=== PATIENT | male | born 1945 | race Caucasian/White ===

== ENCOUNTER 2017-06-15 13:51 | Emergency (ER) | payer OTHER, BC ==
[~2017-06-15] VITALS: Ht 167.6 cm; Wt 90.7 kg
[~2017-06-15 13:51] MED LIST: ACETAMINOPHEN325 MG PO; AUGMENTIN 875875 MG PO; BENICAR40 MG PO; CELEXA20 MG PO; DICLOFENAC SODI75 MG PO; HYDROCODONE-AP1 EAC6 PO; KEFLEX500 MG PO; LOPRESSOR50 PO; XANAX 0.5 MG0.5 MG PO; ZESTRIL40 MG PO
[2017-06-15] MEDS ORDERED: FLEXERIL PO (14:58)
== END 2017-06-15 15:13 | disposition home or self-care (01) ==
LOC: ER 13:51
DX: M54.2 Cervicalgia (principal); I10 Essential (primary) hypertension; J44.9 Chronic obstructive pulmonary disease, unspecified; Z87.442 Personal history of urinary calculi; Z88.7 Allergy status to serum and vaccine; V89.2XXA Person injured in unspecified motor-vehicle accident, traffic, initial encounter; Y93.89 Activity, other specified; Y92.89 Other specified places as the place of occurrence of the external cause; Y99.8 Other external cause status

== ENCOUNTER 2017-07-04 15:13 | Inpatient (IN) | payer OTHER, BC ==
[~2017-07-04] VITALS: Ht 167.6 cm; Wt 91.6 kg
--- NOTE | ~2017-07-04 | EKG ---
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: [facility] : 1945 Requested By: Jose Luis Quan Order Number: [id number] MD: Salvador Garcia Measurements Intervals [place] Rate: 65 P: 68 [place]: 151 QRS: -14 QRSD: 108 T: -42 QT: 443 QTc: 461 Interpretive Statements Sinus rhythm Left atrial enlargement Abnormal R-wave progression, late transition Abnormal T, inferior leads Compared to ECG 01/22/2003 12:27:40 T-wave abnormality now present Electronically Signed On 07-05-2017 8:34:20 CDT by Salvador Garcia [email or web address] <ELECTRONICALLY SIGNED> By: Salvador Garcia MD, [facility] 07/05/17 0834 1546 1546 Salvador Garcia MD, [facility] /EPI
--- NOTE | ~2017-07-04 | HC ---
[facility] [place] [address] CONSULTATION Name: EFFIE SILVESTRE ANTIOCH Room #: 216-[facility] IN M.R.#: [id number] Admission: 07/04/17 Attend Phys: Ollie Garcia MD Discharge: 07/07/17 Date of : 49 Report #: [id number] THIS REPORT FOR: //name// CC: Ollie Pemberton REASON FOR CONSULTATION: Elevated troponin. HISTORY OF PRESENT ILLNESS: The patient is a 71-year-old gentleman with history of severe COPD with a greater than [id number] smoking history, hypertension and dyslipidemia. In the past, he has had an elevated coronary calcium score and normal ejection fraction with a nonischemic stress study in either 2014 or 2015. I saw him in the office on June 21 with exertional breathlessness following an episode of either bronchitis or pneumonia in February of 2017. He was placed on steroids and antibiotics at that time, although his symptoms persisted, never really completely resolved. In the office, as has been at home, his oxygen saturations were consistently in the low 80s. Home oxygen therapy was arranged and an outpatient echocardiogram was performed, which demonstrated normal left ventricular systolic function, severe right ventricular dysfunction and severe pulmonary hypertension. He was seen in consultation by Dr. Sam Britt. Pulmonary function studies demonstrated very severe COPD. The patient now presents with cough productive of bloody sputum. He has had fevers and chills. He has not taken his temperature. He was seen in the Emergency Department. Given his history of hemoptysis, chest x-ray was fairly unremarkable. CT scan demonstrated right lower lobe pneumonia. In the Emergency Department, his evaluation also included a proBNP that was elevated at 6710 and a troponin at 1.78. His troponin levels have been low-grade, persistently elevated. EKG demonstrated no acute ST or T-wave changes. When he was seen in the office a couple of weeks ago, he had significant lower extremity edema and volume overload. This has resolved with a change in diuretic therapy from low dose furosemide to torsemide. MEDICATIONS: Include citalopram 20 mg daily, clonidine 0.3 mg half tablet in the morning, torsemide 20 mg daily, potassium 20 mEq daily, hydrocodone as needed, lisinopril 40 mg twice daily, Toprol-XL 100 mg daily. PAST MEDICAL HISTORY: Notable for herniorrhaphy, knee surgery, tooth extraction, dyslipidemia, central lobular emphysema, staghorn renal calculus, DJD, coronary artery nonocclusive atherosclerosis. SOCIAL HISTORY: He is an ongoing smoker, . FAMILY HISTORY: Unremarkable for premature coronary disease. [address] [address] CONSULTATION Name: DENTON SILVESTRET ANTIOCH Room #: 216-[facility] IN M.R.#: [id number] Admission: 07/04/17 Attend Phys: Ollie Garcia MD Discharge: 07/07/17 Date of : 49 Report #: [id number] REVIEW OF SYSTEMS: All systems negative except as that noted above. PHYSICAL EXAMINATION: GENERAL: A pleasant gentleman in no distress. VITAL SIGNS: Blood pressure is 170/100, temperature is 99.2 degrees, 5 feet 6 inches tall, 202 pounds. HEENT: There are neither xanthelasma, subcutaneous xanthomata, oral mucosal or digital cyanosis or kyphoscoliosis present. CHEST: Reveals diminished breath sounds at both bases. CARDIAC: Regular rate and rhythm with normal S1 and increased pulmonic closure sound. ABDOMEN: Soft and nontender. EXTREMITIES: Without cyanosis, clubbing or edema. Radial pulses are 2+. NEUROLOGIC: Alert with a nonfocal exam. LABORATORY DATA: Sodium 139, potassium 4.4, creatinine 1.1. ProBNP of 6710. White count 3.8, hemoglobin 13, hematocrit 42, platelet count 157. EKG, sinus rhythm with early R-wave progression. IMPRESSION: 1. Right lower lobe pneumonia. 2. Chronic obstructive pulmonary disease exacerbation with hemoptysis. 3. Very severe chronic obstructive pulmonary disease with right ventricular failure and severe pulmonary hypertension. 4. Non-Q-wave myocardial infarction consistent with a type 2 myocardial infarction related to supply demand mismatch in the setting of hypoxemia, fever, hypertension and chronic obstructive pulmonary disease exacerbation. 5. Hypertension. 6. Chronic diastolic heart failure with stable volume status, actually improved from recently. RECOMMENDATIONS: 1. Resume medications. 2. Primary efforts directed towards treatment of underlying lung disease and pneumonia. 3. Smoking cessation discussed. Thank you for asking me to participate in the patient's care. <ELECTRONICALLY SIGNED> By: Salvador Garcia MD, [facility] 07/10/17 0911 0747 58 Salvador Garcia MD, FAC /nt
--- NOTE | ~2017-07-04 | HC ---
[facility] [place] [address] CONSULTATION Name: EFFIE SILVESTRE LACONIA Room #: 216-P [facility] IN M.R.#: [id number] Admission: 07/04/17 Attend Phys: Ollie Garcia MD Discharge: 07/07/17 Date of : 49 Report #: [id number] THIS REPORT FOR: //name// CC: Ollie Pemberton DATE OF SERVICE: 07/04/2017 PRIMARY CARE PHYSICIAN: Dr. Gustavo Pemberton. REFERRAL PHYSICIAN: Dr. Garcia. REASON FOR REFERRAL: Hemoptysis. HISTORY OF PRESENT ILLNESS: The patient is a 71-year-old white male who presents to Emergency Room with hemoptysis. A pulmonary consultation was requested. The patient was recently seen by Dr. Britt in the Pulmonary office for COPD. He was also seen by Cardiology recently. An echocardiogram performed showed evidence of right-sided heart failure with pulmonary hypertension, severe right ventricular dysfunction. I do not have a copy of pulmonary function test. About a week and a half ago, he noticed he had mild chills, sore throat. He had a cough mildly productive of purulent sputum. About 2 days ago, he started to develop increasing cough, now productive of what appears to be minimal amounts of bright red blood mixed in with sputum. For that reason, he presents to the Emergency Room. Otherwise, he denies any chest pain, nausea, vomiting, diarrhea. The patient has smoked for the last 50 plus years. He smokes about a pack a day. He is known to have COPD in the past. PAST MEDICAL HISTORY: COPD, severity unknown; tobacco abuse; history of nephrolithiasis; hypertension; recent echocardiogram showing pulmonary hypertension, RV dysfunction. I do not have the echocardiogram for review. PAST SURGICAL HISTORY: Status post right knee surgery. ALLERGIES: None to medication. He is allergic to TETANUS TOXOID, reactions unspecified. MEDICATIONS: Home medications include hydrocodone, Voltaren, Lopressor, Xanax, Celexa, Benicar, Zestril, clonidine, K-Dur, Demadex. FAMILY HISTORY: Father at the age of 31 due to accident. Mother due [facility] [address] [place] [address] CONSULTATION Name: EFFIE SILVESTRE LACONIA Room #: 216-P [facility] IN [facility].#: [id number] Admission: 07/04/17 Attend Phys: Ollie Garcia MD Discharge: 07/07/17 Date of : 49 Report #: [id number] to throat cancer, she had smoked. SOCIAL HISTORY: He is , smokes about 2 packs a day. He denies any alcohol use. REVIEW OF SYSTEMS: As mentioned above. Otherwise, 10-point system review negative. PHYSICAL EXAMINATION: GENERAL: He is alert, awake, appears to be in mild distress. VITAL SIGNS: Temperature is 99.2 degrees Fahrenheit, pulse is 80, respiratory rate is 20, blood pressure 185/100 mmHg, saturation 91%. HEENT: Normocephalic, atraumatic. NECK: Supple, without lymphadenopathy or thyromegaly. CHEST: Breath sounds are good with few scattered crackles in the bases. No wheezes. CARDIOVASCULAR: Normal S1, S2. No murmurs or gallop. There is no JVD. There is no carotid bruit. Pulses are 2+/4+ bilaterally. ABDOMEN: Moderately obese, soft, nontender. EXTREMITIES: No cyanosis or clubbing, but trace edema bilaterally, less than 1+. NEUROLOGIC: Grossly intact. LABORATORY DATA: Chest x-ray showed cardiomegaly. CT chest angiogram showed no evidence of pulmonary embolus, mild patchy infiltrates in the right lower lung field. There appears to be a small consolidation density also within the infiltrates. Electrolytes normal, creatinine is 1.1. WBC is 6200, hemoglobin is 14.0, platelets are normal. Troponin 3.8. Arterial blood gas revealed pH of 7.36, pCO2 of 57, pO2 of 65 on 2 liters of O2. IMPRESSION: 1. Hemoptysis in this 71-year-old white male, probably related to underlying exacerbation of chronic obstructive pulmonary disease along with pneumonia, right lower lobe. 2. Chronic obstructive pulmonary disease, seborrhea, severity unknown, now with mild exacerbation. 3. Probable chronic hypercapnic respiratory failure. 4. Right lower lobe infiltrates. My review of the CT chest angiogram suggested possible density involving the right lower lobe pleural base. A followup CT chest may be helpful to rule out other pathologies. 5. Elevated troponin, probably related to increasing myocardial stress demand, Cardiology has been consulted. 6. Pulmonary hypertension, right ventricular dysfunction, due to his pulmonary impairment. The patient appeared to have right-sided heart failure due to cor [address] [place] [address] CONSULTATION Name: EFFIE SILVESTRE LACONIA Room #: 216-P [facility] IN M.R.#: [id number] Admission: 07/04/17 Attend Phys: Ollie Garcia MD Discharge: 07/07/17 Date of : 49 Report #: [id number] pulmonale, much improved after he has been placed on diuretics as an outpatient. 7. Tobacco abuse. We had a long discussion regarding importance of smoke cessation. RECOMMENDATION AND DISCUSSION: I agree with broad-spectrum antibiotics, corticosteroids and bronchodilators. The patient should be treated for community-acquired pneumonia. Followup CT chest in 6-8 weeks after treatment is recommended to assure that infiltrates, densities clear. Agree with gentle diuresis given right-sided heart failure due to cor pulmonale. DVT and GI prophylaxis recommended. Again strongly recommended smoke cessation. The patient voices understanding. Thank you for the consultation, Dr. Britt will follow during this hospital stay. <ELECTRONICALLY SIGNED> By: Peter Dumont MD 07/08/17 1232 1203 2211 Peter Dumont MD /nt
[~2017-07-04 15:13] MED LIST changes: +FLEXERIL PO
[2017-07-04 15:19] VITALS: BP 147/99
[2017-07-04 16:21] LABS: ABSOLUTE NEUTROPHILS 4.5 thou/uL (1.4-8.2); BASOPHILS 0.4 % (0.0-2.0); EOSINOPHILS 1.1 % (0.0-3.0); HEMATOCRIT 41.6 % (42.0-52.0); LYMPHOCYTES 13.8 % (24.0-44.0); MCH 31.6 pg (26.0-34.0); MCHC 33.6 g/dL (28.0-37.0); MCV 94.1 fL (80.0-100.0); MONOCYTES 11.9 % (1.0-8.0); PLATELET COUNT 148 thou/uL (150-400); POLYS 72.8 % (36.0-66.0); RBC 4.42 mil/uL (4.50-6.00); RDW 15.9 % (10.5-14.5); WBC 6.2 thou/uL (4.0-11.0)
[2017-07-04 16:29] LABS: CALCIUM 8.7 mg/dL (8.5-10.1); CREATININE 1.2 mg/dL (0.7-1.3); POTASSIUM 3.9 mmol/L (3.5-5.1)
[2017-07-04 16:31] LABS: HCO3 32.1 mmol/L (22.0-26.0); PCO2 57.8 mmHg (35.0-45.0); PO2 65.2 mmHg (80.0-100.0); pH 7.362 (7.360-7.450); sO2 91.7 % (92.0-98.0)
[2017-07-04 16:38] LABS: TROPONIN-I 1.36 ng/mL (<0.06)
[2017-07-04] MEDS ORDERED: CLONIDINE HCL0.3 M3 PO (18:18)
[2017-07-04] MEDS ORDERED: DEMADEX20 MG PO (18:20)
[2017-07-04] MEDS ORDERED: POTASSIUM20 PO (18:20)
[2017-07-04 18:22] VITALS: BP 185/101
[2017-07-04 19:30] VITALS: BP 180/105
[2017-07-05] VITALS (7 sets, daily range): BP systolic 157–195; BP diastolic 89–101
[2017-07-05 04:58] LABS: HEMOGLOBIN 13.9 gm/dL (14.0-18.0); MCH 31.5 pg (26.0-34.0); MCHC 33.1 g/dL (28.0-37.0); MCV 95.3 fL (80.0-100.0); RBC 4.41 mil/uL (4.50-6.00); WBC 3.8 thou/uL (4.0-11.0)
[2017-07-05 05:06] LABS: CALCIUM 8.6 mg/dL (8.5-10.1); CREATININE 1.1 mg/dL (0.7-1.3); MAGNESIUM 1.7 mg/dL (1.8-2.4); POTASSIUM 4.4 mmol/L (3.5-5.1)
[2017-07-05 05:11] LABS: CHOLESTEROL 113 mg/dL (<200); HDL CHOLESTEROL 46 mg/dL (>40); LDL CHOLESTEROL 59 mg/dL (<100); TC:HDL 2.5 Ratio (Not establshd); TRIGLYCERIDE 44 mg/dL (<150); VLDL 9 mg/dL (<40)
[2017-07-05 05:12] LABS: SERUM ASSESSMENT Clear
[2017-07-06 04:36] VITALS: BP 163/103
[2017-07-06 09:19] VITALS: BP 146/67
[2017-07-06] MEDS ORDERED: MUCINEX600 MG PO (09:53)
[2017-07-06] MEDS ORDERED: LEVAQUIN 500 M500 M3 PO (09:55)
[2017-07-06] MEDS ORDERED: PREDNISONE 10 M10 MG PO (09:56)
[2017-07-06 12:38] VITALS: BP 156/85
[2017-07-06 17:07] VITALS: BP 147/78
[2017-07-06 19:45] VITALS: BP 154/83
[2017-07-07 04:25] VITALS: BP 162/100
[2017-07-07 07:07] VITALS: BP 165/109
[2017-07-07 11:44] VITALS: BP 145/92
[2017-07-07] MEDS ORDERED: DUONEB 2.5-0.5 M3 ML INH (11:50)
[2017-07-07 13:06] VITALS: BP 145/92
== END 2017-07-07 14:03 | disposition home or self-care (01) | DRG 193 ==
LOC: ER 15:13 → 2N 18:06 → EROBS 18:06 → 2N 19:36
PROVIDERS: Internal Medicine; Internal Medicine Pulmonary Disease; Physician Assistant
DX: J18.1 Lobar pneumonia, unspecified organism (principal); J96.21 Acute and chronic respiratory failure with hypoxia; I21.A1 Myocardial infarction type 2; J96.22 Acute and chronic respiratory failure with hypercapnia; J44.1 Chronic obstructive pulmonary disease with (acute) exacerbation; R04.2 Hemoptysis; I50.32 Chronic diastolic (congestive) heart failure; J44.0 Chronic obstructive pulmonary disease with (acute) lower respiratory infection; F17.210 Nicotine dependence, cigarettes, uncomplicated; E78.5 Hyperlipidemia, unspecified; K08.409 Partial loss of teeth, unspecified cause, unspecified class; I11.0 Hypertensive heart disease with heart failure; M19.90 Unspecified osteoarthritis, unspecified site; I25.10 Atherosclerotic heart disease of native coronary artery without angina pectoris; I27.20 Pulmonary hypertension, unspecified; F41.9 Anxiety disorder, unspecified; I27.81 Cor pulmonale (chronic); Z79.82 Long term (current) use of aspirin; Z90.6 Acquired absence of other parts of urinary tract; Z87.442 Personal history of urinary calculi; Z88.8 Allergy status to other drugs, medicaments and biological substances; Z82.49 Family history of ischemic heart disease and other diseases of the circulatory system; Z79.899 Other long term (current) drug therapy
CPT/HCPCS: 10081

== ENCOUNTER 2017-07-13 10:44 | Inpatient (IN) | payer OTHER, BC ==
[~2017-07-13] VITALS: Ht 167.6 cm; Wt 97.1 kg
--- NOTE | ~2017-07-13 | EKG ---
[address] [address] ELECTROCARDIOGRAM REPORT Name: VESNA SILVESTREALIREZA MOREL Room #: 207-P ADM IN M.R.#: [id number] Admission: 07/13/17 Attend Phys: Talia Ngo MD Discharge: Date of : 49 Report #: [id number] THIS REPORT FOR: //name// [facility] Test Date: 2017-07-15 Test Time: 18:15:50 Pat Name: EFFIE SILVESTRE Department: Room: 207 P Gender: M Compliance Reviewer: [facility] : 1945 Requested By: Modesto Patterson Order Number: [id number] MD: Hammad Sanchez Measurements Intervals [place] Rate: 92 P: 40 [place]: 114 QRS: 14 QRSD: 105 T: -22 QT: 357 QTc: 442 Interpretive Statements Sinus rhythm Borderline short [place] interval Borderline ST depression, anterolateral leads Abnormal T, consider ischemia, inferior leads Compared to ECG 07/04/2017 15:46:15 Similar to prior EKG Electronically Signed On 07-15-2017 22:58:58 CDT by Hammad Sanchez [email or web address] <ELECTRONICALLY SIGNED> By: Hammad Sanchez MD 07/15/17 2258 1815 1815 Hammad Sanchez MD /EPI
--- NOTE | ~2017-07-13 | H ---
[facility] [place] [address] HISTORY AND PHYSICAL Name: EFFIE SILVESTRE [place] Room #: 207-P ADM IN M.R.#: [id number] Admission: 07/13/17 Attend Phys: Talia Ngo MD Discharge: Date of : 49 Report #: [id number] THIS REPORT FOR: //name// CC: Gustavo Ngo DATE OF SERVICE: 07/13/2017 CHIEF COMPLAINT: Nausea, abdominal cramps. HISTORY OF PRESENT ILLNESS: The patient is a 71-year-old male who recently was at [facility] with pneumonia, hypoxia. The patient was discharged home last week. He stated that he had really good weight. Yesterday, he saw his pulmonary doctor, Dr. Britt. He was doing well. Then, he went with his to eat. He ate and then, he developed abdominal cramps. He stated that he had a large bowel movement yesterday, which was painful. It was hard, but then, by the end, it was loose. The patient had another small bowel movement today. He continues to have abdominal cramps and came to the Emergency Department. PAST MEDICAL HISTORY: History of recent hospitalization with hemoptysis and pneumonia, right-sided heart failure, cor pulmonale. He had kidney surgery, kidney stone, hypertension, COPD, emphysema. He also had elevated troponins last time, which was felt due to oxygen demand due to pneumonia and hypoxia. MEDICATIONS: Reviewed and reconciled. Please see MAR. ALLERGIES: TETANUS. SOCIAL HISTORY: Positive for smoking. No illicit drug use, no alcohol use. FAMILY HISTORY: Noncontributory. REVIEW OF SYSTEMS: No headache, no dizziness, no chest pain, no shortness of breath, no cough. He stated cough resolved. He has abdominal cramps. Feeling bad that he actually ate dinner today. His blood pressure was low on admission, but then it stabilized. He denies any dizziness. Regarding bowel movement, please see discussion above. A little bit nauseated. Did have vomiting yesterday, but none today. He denies any pain in the legs. No neurological deficit. PHYSICAL EXAMINATION: GENERAL: The patient is awake, alert. He is not in distress, answers questions appropriately. VITAL SIGNS: His temperature is 36.6, pulse 85, respirations 16, blood pressure was 80/40 in the ER, currently 116/65. [address] [address] HISTORY AND PHYSICAL Name: EFFIE SILVESTRE [place] Room #: 207-P [facility] IN .R.#: [id number] Admission: 07/13/17 Attend Phys: Talia Ngo MD Discharge: Date of : 49 Report #: [id number] HEENT: Head normocephalic. Oral mucosa pink, moist. NECK: Supple. LUNGS: Showed clear breath sounds. No wheezes, crackles or rhonchi. HEART: S1, S2 normal. Rhythm is regular. ABDOMEN: Obese, diffuse tenderness on palpation. No localized tenderness, no rebound, no guarding. Bowel sounds normoactive. EXTREMITIES: Showed no edema, no calf tenderness. NEUROLOGIC: Nonfocal. IMAGING: CT of the abdomen showed no CT findings to explain abdominal pain. Normal appendix. Extensive atherosclerotic disease of the abdominal aorta without evidence of aortic dissection or aneurysm. Mild ascites. No CT evidence of bowel ischemia, ventral hernia present. Colonic diverticulosis without diverticulitis. Interval decrease in the right lower lobe pulmonary opacity. LABORATORY DATA: White blood cell count 26.4, hemoglobin 15.0, platelets 205,000. Sodium 136, potassium 4.0, BUN is 31, creatinine 1.1. On last admission creatinine, was 1. Lactic acid 1.9, lipase 88. ASSESSMENT AND PLAN: 1. Abdominal pain, nausea, vomiting. Possibly, the patient had food poisoning. Gastroenteritis. The patient does have leukocytosis. I will put the patient on Flagyl and IV fluids. No evidence of pneumonia per exam. He completed treatment with antibiotic. We will keep off systemic antibiotic except Flagyl for abdominal process. 2. Acute kidney injury due to dehydration. We will hold torsemide. Give gentle IV fluids. 3. Leukocytosis. Please see discussion above. 4. Low blood pressure. We will hold blood pressure medication and reassess blood pressure. 5. We will check chest x-ray tomorrow to make sure the pneumonia has cleared up. <ELECTRONICALLY SIGNED> By: Talia Ngo MD 07/15/17 0019 1845 1906 Talia Ngo MD /nt
--- NOTE | ~2017-07-13 | HC ---
[facility] [place] [address] CONSULTATION Name: EFFIE SILVESTRE [place] Room #: 207-P ADM IN M.R.#: [id number] Admission: 07/13/17 Attend Phys: Talia Ngo MD Discharge: Date of : 49 Report #: [id number] THIS REPORT FOR: //name// CC: Gustavo Ngo DATE OF SERVICE: 07/14/2017 REFERRING PROVIDER: Talia Ngo MD. REASON FOR CONSULT: Abdominal pain. HISTORY OF PRESENT ILLNESS: The patient is a 71-year-old male who presented to the Emergency Room yesterday with a 24-hour history of abdominal pain, nausea, vomiting and diarrhea. The patient was recently hospitalized for hemoptysis and only has a prior abdominal surgical history of a hernia repair. While in the Emergency Room, he underwent a workup with laboratories and a CT angiogram of the abdomen and pelvis. The patient had a marked leukocytosis with a white blood cell count of 26,000; however, his CT scan showed no evidence of intra-abdominal abnormality. The patient was admitted for ongoing evaluation whereby today, his white blood cell count is minimally improved, down to 24,900; however, chest x-ray today showed free air under the diaphragm. A followup repeat CT scan of the chest, abdomen and pelvis was obtained showing the free air in the abdomen that is moderate in volume as well as inflammation around the sigmoid colon consistent with sigmoid diverticulitis with a microperforation releasing free air into the abdomen. The patient has no large amount of free fluid and has no abscess seen. He does have a recurrent hernia about his hernia mesh placed prior. As such, I am asked to evaluate. PAST MEDICAL HISTORY: Prior hernia repair, hypertension, COPD, emphysema, known kidney stones and a prior pilonidal cystectomy. HOME MEDICATIONS: [place], Voltaren, metoprolol, acetaminophen, Xanax, Celexa, Benicar, lisinopril, clonidine, potassium, and torsemide. He is also on DuoNeb, Mucinex, Levaquin and prednisone during this admission. ALLERGIES: TO TETANUS TOXOID. FAMILY HISTORY: Reviewed and noncontributory. SOCIAL HISTORY: The patient did have a significant tobacco use history, although he states he quit smoking prior to his recent admission. Denies alcohol or illicit drug use. REVIEW OF SYSTEMS: GENERAL: The patient denies nocturnal fevers or chills. [address] [address] CONSULTATION Name: EFFIE SILVESTRE [place] Room #: 207-P [facility] IN M.R.#: [id number] Admission: 07/13/17 Attend Phys: Talia Ngo MD Discharge: Date of : 49 Report #: [id number] HEENT: No change in vision, change in hearing. NECK: No swelling or difficulty swallowing. HEART: No chest pain, palpitations. LUNGS: No cough or shortness of breath. ABDOMEN: Abdominal pain, nausea, vomiting and diarrhea. GENITOURINARY: No dysuria or hematuria. ENDOCRINE: No polyuria or polydipsia. HEMATOLOGIC: No history of bleeding or easy bruising. EXTREMITIES: No history weakness or limited range of motion. NEUROLOGIC: No history of syncope or near syncopal episodes. SKIN AND INTEGUMENT: No history of abnormal lesions or moles. PSYCHIATRIC: Positive history of anxiety and depression. PHYSICAL EXAMINATION: VITAL SIGNS: Temperature 99.2, pulse 80, respirations 18, blood pressure 113/53. He is 5 feet 6 inches tall and weighs 203 pounds. GENERAL: He is alert and oriented, in no acute distress. HEENT: Normocephalic, atraumatic. Pupils equal, round, reactive to light. NECK: Supple, without lymphadenopathy. Trachea midline. HEART: Regular rate and rhythm. LUNGS: Clear to auscultation bilaterally. ABDOMEN: Soft, minimally distended. Minimal diffuse tenderness to deep palpation, but no guarding, no rebound, no peritoneal signs or symptoms. GENITOURINARY: Normal external male genitalia. EXTREMITIES: No clubbing, cyanosis or edema. NEUROLOGIC: Cranial nerves 2-12 are grossly intact. PSYCHIATRIC: Normal mood and affect. SKIN AND INTEGUMENT: No abnormal lesions or moles. LABORATORY AND X-RAY DATA: CBC shows white blood cell count of 24,900, hemoglobin 14.8, platelets 200,000. Creatinine is 1.3. Liver function enzymes are normal. Albumin is extremely low at 2.5. CT scan of the abdomen and pelvis as per HPI shows sigmoid colon inflammation with free air, but no free fluid, all consistent with a sigmoid diverticulitis with microperforation releasing free air into the abdomen. ASSESSMENT AND PLAN: A 71-year-old male who has been placed on steroids for pulmonary disease and is now readmitted with what appears to be sigmoid diverticulitis with microperforation. The patient does not have any evidence of gross peritonitis and is not septic as he is normotensive with a normal heart rate and is afebrile at this time. He does carry a marked leukocytosis, part of which could be ascribed to his recent steroid use. Nonetheless, the patient should be kept n.p.o. with IV fluid rehydration and we will initiate IV antibiotics in the form of Zosyn and Flagyl, which will cover him for all aerobes and anaerobic bacteria. I will perform serial abdominal exams and repeat x-rays daily. Hopefully, he improves with conservative [facility] [address] [place] [address] CONSULTATION Name: NIRMALAEFFIE RAY Room #: 207-P ADM IN M.R.#: [id number] Admission: 07/13/17 Attend Phys: Talia Ngo MD Discharge: Date of : 49 Report #: [id number] management as expected, so as to avoid operative intervention this admission, especially with his recent hemoptysis and pulmonary issues. I did spend greater than 60 minutes in full evaluation of this patient, both discussing with the patient as well as with Dr. Ngo the plan as delineated above. I sincerely appreciate this consult. I will follow closely and leave any further recommendations in the patient's chart as appropriate. <ELECTRONICALLY SIGNED> By: Jacki Lyle MD, FACS 07/15/17 1028 1525 1834 Jacki Lyle MD, FACS /nt
[~2017-07-13 10:44] MED LIST changes: +CLONIDINE HCL0.3 M3 PO; +DEMADEX20 MG PO; +DUONEB 2.5-0.5 M3 ML INH; +LEVAQUIN 500 M500 M3 PO; +MUCINEX600 MG PO; +POTASSIUM20 PO; +PREDNISONE 10 M10 MG PO
[2017-07-13 11:20] VITALS: BP 87/48
[2017-07-13 11:52] LABS: HEMATOCRIT 44.4 % (42.0-52.0); MCH 31.2 pg (26.0-34.0); MCHC 33.8 g/dL (28.0-37.0); MCV 92.4 fL (80.0-100.0); PLATELET COUNT 205 thou/uL (150-400); RBC 4.81 mil/uL (4.50-6.00); RDW 15.8 % (10.5-14.5); WBC 26.4 thou/uL (4.0-11.0)
[2017-07-13 12:00] LABS: CALCIUM 8.4 mg/dL (8.5-10.1); CREATININE 1.6 mg/dL (0.7-1.3)
[2017-07-13 12:06] LABS: ALBUMIN 2.7 g/dL (3.4-5.0); TOTAL BILIRUBIN 0.9 mg/dL (<0.1-1.0); TOTAL PROTEIN 6.5 g/dL (6.4-8.2)
[2017-07-13 12:53] LABS: ABSOLUTE NEUTROPHILS 24.6 thou/uL (1.4-8.2); METAMYELOCYTES 1 %
[2017-07-13 12:54] LABS: ANISOCYTOSIS 1+
[2017-07-13 13:28] LABS: URINE BILIRUBIN NEGATIVE (Negative); URINE BLOOD 1+ (Negative); URINE COLOR YELLOW; URINE GLUCOSE-RANDOM* NEGATIVE (Negative); URINE KETONES NEGATIVE (Negative); URINE LEUKOCYTES-REFLEX NEGATIVE (Negative); URINE NITRITE-REFLEX NEGATIVE (Negative); URINE PROTEIN (DIPSTICK) NEGATIVE (Negative); URINE SPECIFIC GRAVITY <= 1.005 (1.005-1.035)
[2017-07-13 13:32] LABS: URINE CLARITY SL HAZY
[2017-07-13 13:42] LABS: BACTERIA-REFLEX None Seen /HPF (None Seen); CASTS None Seen /LPF (None Seen); CRYSTALS None Seen /LPF (None Seen); SQUAMOUS None Seen /LPF (0-3); URINE RBC 3-10 Few /HPF (0-2); URINE WBC-REFLEX 0-5 Rare /HPF (0-5)
[2017-07-13 15:11] VITALS: BP 113/62
[2017-07-13 15:24] VITALS: BP 107/69
[2017-07-13 16:05] VITALS: BP 116/65
[2017-07-13 19:33] VITALS: BP 153/93
[2017-07-13 20:35] VITALS: BP 137/86
[2017-07-13] MEDS ORDERED: CLONIDINE HCL0.3 M3 PO (20:41)
[2017-07-13] MEDS ORDERED: K-DUR 20 MEQ T20 MEQ PO (20:43)
[2017-07-13] MEDS ORDERED: DEMADEX20 MG PO (20:44)
[2017-07-14] VITALS (9 sets, daily range): BP systolic 107–155; BP diastolic 53–96
[2017-07-14 03:31] LABS: HEMATOCRIT 44.7 % (42.0-52.0); HEMOGLOBIN 14.8 gm/dL (14.0-18.0); MCH 31.1 pg (26.0-34.0); MCHC 33.1 g/dL (28.0-37.0); RBC 4.76 mil/uL (4.50-6.00); WBC 24.9 thou/uL (4.0-11.0)
[2017-07-14 03:42] LABS: ALBUMIN 2.5 g/dL (3.4-5.0); CALCIUM 8.6 mg/dL (8.5-10.1); CREATININE 1.3 mg/dL (0.7-1.3); POTASSIUM 4.2 mmol/L (3.5-5.1); TOTAL PROTEIN 6.4 g/dL (6.4-8.2)
[2017-07-15] VITALS (8 sets, daily range): BP systolic 135–151; BP diastolic 65–90
[2017-07-15 03:14] LABS: ABSOLUTE NEUTROPHILS 14.5 thou/uL (1.4-8.2); BASOPHILS 0.1 % (0.0-2.0); HEMATOCRIT 39.3 % (42.0-52.0); HEMOGLOBIN 12.9 gm/dL (14.0-18.0); LYMPHOCYTES 3.8 % (24.0-44.0); MCH 31.1 pg (26.0-34.0); MCHC 32.8 g/dL (28.0-37.0); MCV 94.7 fL (80.0-100.0); MONOCYTES 4.6 % (1.0-8.0); PLATELET COUNT 174 thou/uL (150-400); POLYS 91.5 % (36.0-66.0); RBC 4.15 mil/uL (4.50-6.00); RDW 15.8 % (10.5-14.5); WBC 15.9 thou/uL (4.0-11.0)
[2017-07-15 03:31] LABS: ALBUMIN 2.2 g/dL (3.4-5.0); CALCIUM 8.6 mg/dL (8.5-10.1); CREATININE 1.2 mg/dL (0.7-1.3); MAGNESIUM 1.7 mg/dL (1.8-2.4); TOTAL BILIRUBIN 0.7 mg/dL (<0.1-1.0); TOTAL PROTEIN 6.1 g/dL (6.4-8.2)
[2017-07-15 17:45] LABS: MAGNESIUM 2.2 mg/dL (1.8-2.4)
[2017-07-15 17:49] LABS: TROPONIN-I 5.24 ng/mL (<0.06)
[2017-07-16 04:49] VITALS: BP 147/79
[2017-07-16 05:05] LABS: HEMATOCRIT 38.6 % (42.0-52.0); HEMOGLOBIN 12.8 gm/dL (14.0-18.0); MCH 31.3 pg (26.0-34.0); MCHC 33.3 g/dL (28.0-37.0); RBC 4.1 mil/uL (4.50-6.00); RDW 15.6 % (10.5-14.5); WBC 9.2 thou/uL (4.0-11.0)
[2017-07-16 05:18] LABS: CALCIUM 8.4 mg/dL (8.5-10.1); CREATININE 1.1 mg/dL (0.7-1.3); POTASSIUM 4.1 mmol/L (3.5-5.1); TOTAL BILIRUBIN 0.7 mg/dL (<0.1-1.0)
[2017-07-16 07:58] VITALS: BP 154/88
[2017-07-16 11:48] VITALS: BP 116/78
[2017-07-16 15:52] VITALS: BP 143/81
[2017-07-16 19:56] VITALS: BP 156/97
[2017-07-17 02:08] VITALS: BP 156/97
[2017-07-17 03:59] LABS: ABSOLUTE NEUTROPHILS 5.3 thou/uL (1.4-8.2); BASOPHILS 0.6 % (0.0-2.0); EOSINOPHILS 1.1 % (0.0-3.0); HEMATOCRIT 38.3 % (42.0-52.0); HEMOGLOBIN 12.9 gm/dL (14.0-18.0); LYMPHOCYTES 10.6 % (24.0-44.0); MCH 31.6 pg (26.0-34.0); MCHC 33.6 g/dL (28.0-37.0); MCV 94.2 fL (80.0-100.0); MONOCYTES 11.3 % (1.0-8.0); PLATELET COUNT 167 thou/uL (150-400); POLYS 76.4 % (36.0-66.0); RBC 4.07 mil/uL (4.50-6.00); RDW 15.7 % (10.5-14.5); WBC 6.9 thou/uL (4.0-11.0)
[2017-07-17 04:16] LABS: CALCIUM 8.4 mg/dL (8.5-10.1); MAGNESIUM 1.9 mg/dL (1.8-2.4)
[2017-07-17 04:40] VITALS: BP 143/92
[2017-07-17 11:46] VITALS: BP 96/60
[2017-07-17 15:37] VITALS: BP 121/82
[2017-07-17 19:50] VITALS: BP 130/83
[2017-07-17 23:54] VITALS: BP 130/83
[2017-07-18 04:00] VITALS: BP 154/99
[2017-07-18 08:00] VITALS: BP 175/101
[2017-07-18 10:00] VITALS: BP 129/79
[2017-07-18 11:59] VITALS: BP 115/81
[2017-07-18 15:50] VITALS: BP 117/79
[2017-07-18] MEDS ORDERED: DICLOFENAC SOD50 M1 PO (18:46)
[2017-07-18 19:38] VITALS: BP 145/84
[2017-07-19 03:59] VITALS: BP 136/80
[2017-07-19 04:24] LABS: ABSOLUTE NEUTROPHILS 5.4 thou/uL (1.4-8.2); BASOPHILS 0.8 % (0.0-2.0); EOSINOPHILS 0.9 % (0.0-3.0); HEMATOCRIT 40.1 % (42.0-52.0); HEMOGLOBIN 13.3 gm/dL (14.0-18.0); LYMPHOCYTES 14.2 % (24.0-44.0); MCH 31.5 pg (26.0-34.0); MCHC 33.1 g/dL (28.0-37.0); MCV 95.4 fL (80.0-100.0); MONOCYTES 14.3 % (1.0-8.0); PLATELET COUNT 206 thou/uL (150-400); POLYS 69.8 % (36.0-66.0); RDW 15.1 % (10.5-14.5); WBC 7.7 thou/uL (4.0-11.0)
[2017-07-19 04:31] LABS: CALCIUM 8.6 mg/dL (8.5-10.1); CREATININE 1.2 mg/dL (0.7-1.3); MAGNESIUM 1.8 mg/dL (1.8-2.4); POTASSIUM 4.3 mmol/L (3.5-5.1)
[2017-07-19 07:38] VITALS: BP 152/88
[2017-07-19] MEDS ORDERED: PRINIVIL20 MG PO (11:17)
[2017-07-19] MEDS ORDERED: ADULT LOW DOSE81 MG PO (11:17)
[2017-07-19] MEDS ORDERED: ZOSYN 4.5 GRAM4.5 GM IV (11:17)
[2017-07-19] MEDS ORDERED: HYDROCODON-ACE1 EAC7 PO (11:17)
[2017-07-19 12:59] VITALS: BP 163/101
[2017-07-19 16:26] VITALS: BP 128/77
[2017-07-19 19:26] VITALS: BP 132/89
[2017-07-20 04:50] VITALS: BP 161/102
[2017-07-20 07:25] VITALS: BP 148/98
[2017-07-20 11:25] VITALS: BP 95/62
[2017-07-20] MEDS ORDERED: ZOSYN 3.3753.375 GM IV (12:50)
[2017-07-20 13:45] VITALS: BP 104/74
== END 2017-07-20 15:47 | DRG 871 ==
LOC: ER 10:44 → 2N 14:20 → EROBS 14:20 → 2N 15:48
PROVIDERS: Emergency Medicine; Internal Medicine; Surgery
PROC: 05HC33Z Insertion of Infusion Device into Left Basilic Vein, Percutaneous Approach (ICD-10-PCS; principal; 2017-07-19)
DX: A41.9 Sepsis, unspecified organism (principal); E43 Unspecified severe protein-calorie malnutrition; K57.20 Diverticulitis of large intestine with perforation and abscess without bleeding; N17.9 Acute kidney failure, unspecified; J96.11 Chronic respiratory failure with hypoxia; J44.9 Chronic obstructive pulmonary disease, unspecified; E86.0 Dehydration; M19.90 Unspecified osteoarthritis, unspecified site; E83.42 Hypomagnesemia; R91.1 Solitary pulmonary nodule; N20.0 Calculus of kidney; I11.0 Hypertensive heart disease with heart failure; I27.20 Pulmonary hypertension, unspecified; I50.9 Heart failure, unspecified; I48.0 Paroxysmal atrial fibrillation; R10.13 Epigastric pain; K82.8 Other specified diseases of gallbladder; Z87.442 Personal history of urinary calculi; Z68.34 Body mass index [BMI] 34.0-34.9, adult; Z88.8 Allergy status to other drugs, medicaments and biological substances; Z79.82 Long term (current) use of aspirin; Z79.899 Other long term (current) drug therapy
CPT/HCPCS: 10081; 27001

== ENCOUNTER → 2017-08-08 | Outpatient (CLI) | payer OTHER, BC ==
[~2017-08-08] MED LIST changes: +ADULT LOW DOSE81 MG PO; +DICLOFENAC SOD50 M1 PO; +HYDROCODON-ACE1 EAC7 PO; +K-DUR 20 MEQ T20 MEQ PO; +PRINIVIL20 MG PO; +ZOSYN 3.3753.375 GM IV; +ZOSYN 4.5 GRAM4.5 GM IV
== END ==
LOC: CAT 06:19
DX: K57.30 Diverticulosis of large intestine without perforation or abscess without bleeding (principal); N20.0 Calculus of kidney; M47.896 Other spondylosis, lumbar region; J98.11 Atelectasis

== ENCOUNTER 2017-09-13 19:11 | Inpatient (IN) | payer OTHER, BC ==
[~2017-09-13] VITALS: Ht 167.6 cm; Wt 90.7 kg
--- NOTE | ~2017-09-13 | HC ---
[facility] [place] [address] CONSULTATION Name: EFFIE SILVESTRE BATTIEST Room #: 457-P [facility] IN .R.#: [id number] Admission: 09/13/17 Attend Phys: Vladimir Montes MD Discharge: Date of : 49 Report #: [id number] THIS REPORT FOR: //name// CC: Vladimir Lyle DATE OF SERVICE: 09/13/2017 REFERRING PROVIDER: Vladimir Montes MD. REASON FOR CONSULT: Fevers with prior diverticulitis. HISTORY OF PRESENT ILLNESS: The patient is a 71-year-old male who was admitted 2 months ago with pneumonia on top of oxygen dependent COPD and right heart failure with severe dysfunction and pulmonary hypertension. The patient unfortunately developed a sigmoid diverticulitis with microperforation at that time and was nontoxic appearing. In light of his overwhelming medical illnesses at the time and not toxic appearance, he was treated conservatively with n.p.o. status and IV antibiotic therapy under the direction of Infectious Disease. The patient made slow steady improvement in his clinical course and has been managed as an outpatient with no abdominal complaints. However, he did have persistent free air in the abdomen on multiple CT scans. The patient underwent further imaging this morning with a CT scan of the abdomen and pelvis with IV oral and rectal Gastrografin, which showed evidence of diverticulosis in either a giant diverticulum or an encapsulated abscess pocket near the sigmoid colon. The patient was sent home and resumed his typical daily life and unfortunately developed fevers to 101 degrees with myalgias and presented to the Emergency Room for evaluation. The patient's labs showed a normal white blood cell count and overall, he appeared nontoxic; however, due to the recent change in his CT scan appearance, he was admitted and I am asked to evaluate. PAST MEDICAL HISTORY: Extensive and includes oxygen dependent COPD, recent pneumonias, emphysema, right heart failure with severe right ventricular dysfunction and pulmonary hypertension, prior kidney stones, hypertension, prior acute kidney injury and a history of sigmoid diverticulitis with microperforation 2 months ago. HOME MEDICATIONS: Clonidine, potassium, metoprolol, Xanax, Celexa, torsemide, diclofenac, Augmentin, lisinopril and tiotropium, olodaterol inhalational spray. ALLERGIES: TO TETANUS TOXOID. FAMILY HISTORY: Reviewed and noncontributory. SOCIAL HISTORY: The patient is a former smoker, does not currently utilize alcohol or illicit drugs. [address] [address] CONSULTATION Name: EFFIE SILVESTRE BATTIEST Room #: 457-P [facility] IN ..#: [id number] Admission: 09/13/17 Attend Phys: Vladimir Montes MD Discharge: Date of : 47 Report #: [id number] REVIEW OF SYSTEMS: GENERAL: The patient denies nocturnal fevers or chills. HEENT: No change in vision, change in hearing. NECK: No swelling or difficulty swallowing. HEART: No chest pain or palpitations. LUNGS: No cough or shortness of breath. ABDOMEN: No nausea, no vomiting. GENITOURINARY: No dysuria or hematuria. ENDOCRINE: No polyuria, polydipsia. HEMATOLOGIC: No history of bleeding or easy bruising. EXTREMITIES: No history of weakness or limited range of motion. NEUROLOGIC: No history of syncope or near syncopal episodes. SKIN AND INTEGUMENT: No history of abnormal lesions or moles. PSYCHIATRIC: No history of anxiety or depression. PHYSICAL EXAMINATION: VITAL SIGNS: Temperature is 101.5, pulse 86, respirations 16, blood pressure 172/84. 5 feet 6 inches tall and weighs 200 pounds. GENERAL: Alert and oriented, in no acute distress. HEENT: Normocephalic, atraumatic. Pupils equal, round, reactive to light. NECK: Supple, without lymphadenopathy. Trachea midline. HEART: Regular rate and rhythm. LUNGS: Clear to auscultation bilaterally. GASTROINTESTINAL: Abdomen is soft, nontender, nondistended, positive bowel sounds. No guarding, rebound or peritoneal signs or symptoms whatsoever. GENITOURINARY: Normal external male genitalia. EXTREMITIES: No clubbing, cyanosis or edema. NEUROLOGIC: Cranial nerves 2-12 are grossly intact. PSYCHIATRIC: Normal mood and affect. SKIN AND INTEGUMENT: No abnormal lesions or moles. LABORATORY AND X-RAY DATA: CBC shows white blood cell count of 8400, hemoglobin 11.9, platelets 177,000. Creatinine 1.1. Liver function enzymes normal. Lactic acid normal at 1.0. CT scan of the abdomen and pelvis from this morning as per HPI shows sigmoid diverticulosis with either a contained perforation and abscess of nearly 5 x 5 cm or a giant diverticulum. ASSESSMENT AND PLAN: A 71-year-old male with a history of sigmoid diverticulitis and a microperforation, who has evidence on CT scan from this morning of either a 5 x 5 cm intra-abdominal abscess or a giant diverticulum, but no extravasation of contrast or free air. The patient's abdomen is benign and he appears nontoxic, although he has mounted a fever of unknown origin. The patient has been admitted. I recommend continuation of serial abdominal exams, IV fluids, n.p.o. status at this time. We will recheck labs first thing in the morning as well. Ideally, if the patient improves from his febrile episode, we [facility] [place] [address] CONSULTATION Name: EFFIE SILVESTRE BATTIEST Room #: 457-P ADM IN M.R.#: [id number] Admission: 09/13/17 Attend Phys: Vladimir Montes MD Discharge: Date of : 47 Report #: [id number] may ask Gastroenterology to evaluate for the possibility of a colonoscopy to complete his preoperative workup prior to undergoing sigmoid colectomy. The patient does state he has significant issues performing bowel preps for GI procedures and as such, it may be beneficial to complete this while admitted as he recently underwent a bowel prep for this morning CT scan. Nonetheless, I will continue to perform serial abdominal exams and leave further recommendations in the patient's chart as appropriate. I do sincerely appreciate this consult. <ELECTRONICALLY SIGNED> By: Jacki Lyle MD, FACS 09/15/17 1000 1535 39 Jacki Lyle MD, FACS /nt
--- NOTE | ~2017-09-13 | HC ---
[facility] [place] [address] CONSULTATION Name: EFFIE SILVESTRE LITTLETON Room #: 457-P ADM IN M.R.#: [id number] Admission: 09/13/17 Attend Phys: Uma Alejandra MD Discharge: Date of : 47 Report #: [id number] THIS REPORT FOR: //name// CC: Vladimir Lyle DATE OF SERVICE: 09/15/2017 ATTENDING PHYSICIAN: Dr. Lyle. REASON FOR CONSULTATION: Diverticular abscess, fever. HISTORY OF PRESENT ILLNESS: The patient is a 71-year-old white man, admitted through the Emergency Room with history of fevers and abnormal CT scan of abdomen and pelvis compatible with diverticulitis versus diverticular abscess. The patient was previously hospitalized at [facility] with similar problems and he was evaluated by Dr. Lyle and they have discussed possibility of surgery. The patient was discharged from [facility] on 07/20/2017 to a local nursing facility and he is now readmitted with abdominal pain and fever. PAST MEDICAL HISTORY: COPD, pneumonia, right-sided heart failure, pulmonary hypertension, kidney stones, colonic diverticulitis and microperforation. DRUG ALLERGIES: TETANUS TOXOID. MEDICATIONS: The patient is on treatment with lisinopril, citalopram, metoprolol, hydrocodone p.r.n., aspirin, clonidine, alprazolam, Zosyn 3.375 grams IV every 8 hours, Atrovent/albuterol inhalation treatments, p.r.n. fentanyl, p.r.n. ondansetron. SOCIAL HISTORY: See H and P, old records. FAMILY HISTORY: See H and P, old records. REVIEW OF SYSTEMS: As above and see H and P. PHYSICAL EXAMINATION: GENERAL: Well developed, nontoxic looking man. VITAL SIGNS: Temperature maximum 101.5 on the date of admission, afebrile thereafter, temperature 99.3, pulse 84, respirations 18, BP 169/92 today. O2 saturation is 95% on 2 liters oxygen nasal cannula. HEENMT: Within range. NECK: Supple. LUNGS: Clear. HEART: S1, S2. No gallop or murmur. [facility] [address] [place] [address] CONSULTATION Name: EFFIE SILVESTRE LITTLETON Room #: 457-[facility] IN [facility]#: [id number] Admission: 09/13/17 Attend Phys: Uma Alejandra MD Discharge: Date of : 47 Report #: [id number] ABDOMEN: Not tender. Abdominal wall hernia. Surgical scar of previous abdominal wall hernia repair. GENITALIA AND RECTAL: Deferred. EXTREMITIES: No clubbing, cyanosis. NEUROLOGIC: Grossly within normal limits. LABORATORY DATA: Sodium 138, potassium 3.8, BUN 8, creatinine 1, glucose 108, albumin 2.8 g/dL. WBC 6800, hemoglobin 12 g/dL, platelets 172,000. RADIOLOGY EVALUATION: CT scan abdomen and pelvis revealed focal air collection in the pelvic area, which appeared to communicate with diverticulum originating from the sigmoid colon. The air fluid collection contains contrast material from the sigmoid colon. ASSESSMENT: 1. Acute diverticulitis with possible abscess formation. 2. Chronic obstructive pulmonary disease. 3. Hypertension. SUGGESTIONS: Recommend continue treatment with Zosyn. Discussed possibility of the patient requiring surgery in the not so distant future. Dr. Lyle, thank you for requesting my suggestions in the care of your patient. <ELECTRONICALLY SIGNED> By: Papa Sanchez MD 09/16/17 1300 0857 1502 Papa Sanchez MD /nt
[~2017-09-13 19:11] MED LIST changes: -AUGMENTIN 875-1 EACH PO; -LISINOPRIL20 MG PO; -STIOLTO RESPIMAT4 GM INH
[2017-09-13 19:12] VITALS: BP 169/85
[2017-09-13 20:23] LABS: HEMATOCRIT 34.8 % (42.0-52.0); HEMOGLOBIN 11.9 gm/dL (14.0-18.0); MCH 31.4 pg (26.0-34.0); MCHC 34.3 g/dL (28.0-37.0); MCV 91.7 fL (80.0-100.0); PLATELET COUNT 177 thou/uL (150-400); RDW 14.5 % (10.5-14.5); WBC 8.4 thou/uL (4.0-11.0)
[2017-09-13 20:27] LABS: CALCIUM 8.7 mg/dL (8.5-10.1); CREATININE 1.1 mg/dL (0.7-1.3); POTASSIUM 3.9 mmol/L (3.5-5.1)
[2017-09-13 20:32] LABS: ALBUMIN 3.2 g/dL (3.4-5.0); TOTAL BILIRUBIN 0.5 mg/dL (<0.1-1.0); TOTAL PROTEIN 7.6 g/dL (6.4-8.2)
[2017-09-13 20:42] LABS: ABSOLUTE NEUTROPHILS 6.2 thou/uL (1.4-8.2); ANISOCYTOSIS 1+
[2017-09-13] MEDS ORDERED: LISINOPRIL20 MG PO (21:26)
[2017-09-13] MEDS ORDERED: AUGMENTIN 875-1 EACH PO (21:26)
[2017-09-13] MEDS ORDERED: STIOLTO RESPIMAT4 GM INH (21:27)
[2017-09-13 21:53] VITALS: BP 170/88
[2017-09-13 23:12] VITALS: BP 153/79
[2017-09-14 03:16] VITALS: BP 139/84
[2017-09-14 04:31] LABS: HEMATOCRIT 32.6 % (42.0-52.0); HEMOGLOBIN 11.4 gm/dL (14.0-18.0); MCV 91.3 fL (80.0-100.0); RBC 3.57 mil/uL (4.50-6.00); RDW 14.2 % (10.5-14.5); WBC 6.8 thou/uL (4.0-11.0)
[2017-09-14 04:47] LABS: CALCIUM 8.4 mg/dL (8.5-10.1); POTASSIUM 3.7 mmol/L (3.5-5.1)
[2017-09-14 07:15] VITALS: BP 164/83
[2017-09-14 15:37] VITALS: BP 160/91
[2017-09-14 19:03] VITALS: BP 183/114
[2017-09-14 22:51] VITALS: BP 195/112
[2017-09-15 00:17] VITALS: BP 166/101
[2017-09-15 03:35] VITALS: BP 169/92
[2017-09-15 05:12] LABS: HEMATOCRIT 34.1 % (42.0-52.0); MCHC 35.2 g/dL (28.0-37.0); MCV 91.1 fL (80.0-100.0); RBC 3.74 mil/uL (4.50-6.00); RDW 14.2 % (10.5-14.5); WBC 6.8 thou/uL (4.0-11.0)
[2017-09-15 05:21] LABS: ALBUMIN 2.8 g/dL (3.4-5.0); CALCIUM 8.7 mg/dL (8.5-10.1); POTASSIUM 3.8 mmol/L (3.5-5.1); TOTAL BILIRUBIN 0.6 mg/dL (<0.1-1.0)
[2017-09-15 08:00] VITALS: BP 190/88
[2017-09-15 16:00] VITALS: BP 172/91
[2017-09-15 19:29] VITALS: BP 190/107
[2017-09-16 04:30] VITALS: BP 138/74
[2017-09-16 05:46] LABS: HEMATOCRIT 35.5 % (42.0-52.0); HEMOGLOBIN 12.6 gm/dL (14.0-18.0); MCH 32.5 pg (26.0-34.0); MCHC 35.6 g/dL (28.0-37.0); MCV 91.5 fL (80.0-100.0); RBC 3.89 mil/uL (4.50-6.00); RDW 14.1 % (10.5-14.5); WBC 4.7 thou/uL (4.0-11.0)
[2017-09-16 06:16] LABS: ALBUMIN 2.8 g/dL (3.4-5.0); CALCIUM 8.8 mg/dL (8.5-10.1); POTASSIUM 3.7 mmol/L (3.5-5.1); TOTAL BILIRUBIN 0.6 mg/dL (<0.1-1.0); TOTAL PROTEIN 7.2 g/dL (6.4-8.2)
[2017-09-16 08:00] VITALS: BP 156/90
[2017-09-16] MEDS ORDERED: AUGMENTIN 875-1 EACH PO (15:08)
[2017-09-16 15:27] VITALS: BP 179/86
== END 2017-09-16 17:28 | disposition home or self-care (01) | DRG 391 ==
LOC: ER 19:11 → EROBS 21:30 → 4W 21:30
PROVIDERS: Hospitalist; Physician Assistant
PROC: 0DJD8ZZ Inspection of Lower Intestinal Tract, Via Natural or Artificial Opening Endoscopic (ICD-10-PCS; principal; 2017-09-16)
DX: K57.20 Diverticulitis of large intestine with perforation and abscess without bleeding (principal); E43 Unspecified severe protein-calorie malnutrition; I50.9 Heart failure, unspecified; I27.20 Pulmonary hypertension, unspecified; I11.0 Hypertensive heart disease with heart failure; J44.9 Chronic obstructive pulmonary disease, unspecified; Z90.6 Acquired absence of other parts of urinary tract; Z88.7 Allergy status to serum and vaccine; Z99.81 Dependence on supplemental oxygen; Z87.442 Personal history of urinary calculi; Z87.891 Personal history of nicotine dependence; Z79.82 Long term (current) use of aspirin; Z79.899 Other long term (current) drug therapy
CPT/HCPCS: 10040; 62110; 62900; 70005

== ENCOUNTER → 2017-09-13 | Outpatient (CLI) | payer OTHER, BC ==
[~2017-09-13] MED LIST changes: +AUGMENTIN 875-1 EACH PO; +LISINOPRIL20 MG PO; +STIOLTO RESPIMAT4 GM INH
== END ==
LOC: CAT 09-06 11:53
DX: K57.20 Diverticulitis of large intestine with perforation and abscess without bleeding (principal); N20.0 Calculus of kidney; I10 Essential (primary) hypertension; J44.9 Chronic obstructive pulmonary disease, unspecified; I25.10 Atherosclerotic heart disease of native coronary artery without angina pectoris

== ENCOUNTER → 2017-10-09 | Outpatient (CLI) | payer OTHER, BC ==
[~2017-10-09] MED LIST changes: +AUGMENTIN 875-1 EACH PO; +LISINOPRIL20 MG PO; +STIOLTO RESPIMAT4 GM INH
[2017-10-09 11:38] LABS: BE(vivo) 2.4 mmol/L (-2 to +3); HCO3 27.4 mmol/L (22.0-26.0); PCO2 44.3 mmHg (35.0-45.0); PO2 86.4 mmHg (80.0-100.0); sO2 96.6 % (92.0-98.0)
== END ==
LOC: PUL 09:14 → RAD 09:14
PROVIDERS: Internal Medicine Pulmonary Disease
DX: R06.02 Shortness of breath (principal); J44.1 Chronic obstructive pulmonary disease with (acute) exacerbation; I10 Essential (primary) hypertension

== ENCOUNTER → 2017-10-16 | Outpatient (CLI) | payer OTHER, BC ==
--- NOTE | ~2017-10-16 | 2DMMODE ---
[address] [address] 2 D/M-MODE ECHOCARDIOGRAM Name: EFFIE SILVESTRE WHEATCROFT Room #: REG CL [facility]#: [id number] Admission: 10/16/17 Attend Phys: Sam Britt Discharge: Date of : 49 Date of Service: 10/16/17 1508 Report #: [id number] THIS REPORT FOR: //name// APPROVED REPORT Study performed: 10/16/2017 11:06:39 EXAM: Comprehensive 2D, Doppler, and color-flow Echocardiogram Patient Location: Out-Patient Status: routine BSA: 2.04 HR: 64 bpm BP: 160/90 mmHg Rhythm: NSR Other Information Study Quality: Adequate Indications Pulmonary Hypertension Dyspnea 2D Dimensions IVC: 22.00 mm Volumes Left Atrial Volume (Systole) LA ESV Index: 36.00 mL/m2 Tricuspid Valve PA Pressure: 52.00 mmHg Left Ventricle The left ventricle is normal size. Regional wall motion is not well visualized but grossly normal. Upper limits of normal left ventricular wall thickness. The left ventricular systolic function is normal. The left ventricular ejection fraction is within the normal range. LVEF is 50-55%. Grade I - abnormal relaxation pattern. Right Ventricle Right ventricle is mildly dilated. The right ventricular systolic function is mildly hypokinetic Atria [address] [place] [address] 2 D/M-MODE ECHOCARDIOGRAM Name: EFFIE SILVESTRE ADRIEL [id number] Admission: 10/16/17 Attend Phys: Sam Birtt Discharge: Date of : 47 Date of Service: 10/16/17 1508 Report #: [id number] Left atrium is dilated. Right atrium is dilated. Aortic Valve The aortic valve is normal in structure. No aortic regurgitation is present. There is no aortic valvular stenosis. Mitral Valve The mitral valve is normal in structure. No mitral regurgitation. No evidence of mitral valve stenosis. Tricuspid Valve The tricuspid valve is normal in structure. There is mild tricuspid regurgitation. Estimated PAP 52 mmHg. There is moderate pulmonary hypertension. Pulmonic Valve The pulmonary valve is normal in structure. There is no pulmonic valvular regurgitation. Great Vessels The aortic root is normal in size. IVC is dilated and collapses >50% with inspiration. Pericardium There is no pericardial effusion. <Conclusion> The left ventricular systolic function is normal. Regional wall motion is not well visualized but grossly normal. LVEF is 50-55%. Mild diastolic dysfunction Right ventricle is mildly dilated and hypokinetic The aortic valve is normal in structure. No aortic regurgitation or stenosis The mitral valve is normal in structure. No mitral regurgitation. There is mild tricuspid regurgitation. Estimated pulmonary artery pressure of 52 mmHg. There is no pericardial effusion. <ELECTRONICALLY SIGNED> By: Salvador Garcia MD, [facility] 10/16/17 1508 1508 1508 Salvador Garcia MD, [facility] /INF
== END ==
LOC: CV 10:06
DX: I07.1 Rheumatic tricuspid insufficiency (principal); I27.20 Pulmonary hypertension, unspecified

== ENCOUNTER 2018-06-25 13:42 | Emergency (ER) | payer OTHER, BC ==
[~2018-06-25] VITALS: Ht 167.6 cm; Wt 104.3 kg
[2018-06-25 15:52] VITALS: BP 126/65
[2018-06-25] MEDS ORDERED: KEFLEX500 M1 PO (16:10)
== END 2018-06-25 17:49 | disposition home or self-care (01) ==
LOC: ER 13:42
DX: S00.12XA Contusion of left eyelid and periocular area, initial encounter (principal); S00.81XA Abrasion of other part of head, initial encounter; I10 Essential (primary) hypertension; J44.9 Chronic obstructive pulmonary disease, unspecified; F17.210 Nicotine dependence, cigarettes, uncomplicated; Z88.7 Allergy status to serum and vaccine; Z87.01 Personal history of pneumonia (recurrent); Z87.442 Personal history of urinary calculi; W18.39XA Other fall on same level, initial encounter; Y93.89 Activity, other specified; Y92.89 Other specified places as the place of occurrence of the external cause; Y99.8 Other external cause status

== ENCOUNTER → 2019-02-27 | Outpatient (CLI) | payer OTHER, BC ==
[~2019-02-27] MED LIST changes: +KEFLEX500 M1 PO
== END ==
LOC: RAD 09:16
DX: J44.9 Chronic obstructive pulmonary disease, unspecified (principal); J96.11 Chronic respiratory failure with hypoxia; J96.12 Chronic respiratory failure with hypercapnia; G47.34 Idiopathic sleep related nonobstructive alveolar hypoventilation

== ENCOUNTER 2020-05-31 16:09 | Inpatient (IN) | payer OTHER, BC ==
[~2020-05-31] VITALS: Ht 172.7 cm; Wt 121.0 kg
[2020-05-31 16:11] VITALS: BP 211/114
[2020-05-31 17:22] LABS: ABSOLUTE NEUTROPHILS 4.6 thou/uL (1.4-8.2); BASOPHILS 0.3 % (0.0-2.0); EOSINOPHILS 2.2 % (0.0-3.0); HEMATOCRIT 36.2 % (42.0-52.0); HEMOGLOBIN 11.7 gm/dL (14.0-18.0); LYMPHOCYTES 11.1 % (24.0-44.0); MCH 31.5 pg (26.0-34.0); MCHC 32.4 g/dL (28.0-37.0); MCV 97.2 fL (80.0-100.0); MONOCYTES 7.5 % (1.0-8.0); PLATELET COUNT 178 thou/uL (150-400); POLYS 78.9 % (36.0-66.0); RBC 3.73 mil/uL (4.50-6.00); WBC 5.9 thou/uL (4.0-11.0)
[2020-05-31 17:29] LABS: CALCIUM 8.4 mg/dL (8.5-10.1); POTASSIUM 4.5 mmol/L (3.5-5.1)
[2020-05-31 17:37] LABS: TROPONIN-I 0.07 ng/mL (<0.06)
[2020-05-31 21:36] VITALS: BP 203/96
[2020-05-31 22:49] VITALS: BP 135/77
[2020-05-31 22:50] VITALS: BP 153/89
[2020-05-31 23:30] VITALS: BP 187/104
[2020-06-01] MEDS ORDERED: CELEXA 20 MG TA20 MG PO (00:09)
[2020-06-01] MEDS ORDERED: DICLOFENAC SOD50 MG PO (00:11)
[2020-06-01] MEDS ORDERED: LISINOPRIL20 MG PO (00:11)
[2020-06-01] MEDS ORDERED: CLONAZEPAM 0.50.5 M1 PO (00:14)
[2020-06-01] MEDS ORDERED: VENTOLIN HFA 1818 GM INH (00:15)
[2020-06-01] MEDS ORDERED: IRON325 M1 PO (00:15)
[2020-06-01 01:21] LABS: HEMATOCRIT 36.6 % (42.0-52.0); HEMOGLOBIN 12.3 gm/dL (14.0-18.0); MCH 32.6 pg (26.0-34.0); MCHC 33.7 g/dL (28.0-37.0); MCV 96.7 fL (80.0-100.0); RBC 3.79 mil/uL (4.50-6.00); RDW 14.9 % (10.5-14.5); WBC 6.6 thou/uL (4.0-11.0)
[2020-06-01 01:49] LABS: CALCIUM 8.5 mg/dL (8.5-10.1); CREATININE 1.2 mg/dL (0.7-1.3); POTASSIUM 4.5 mmol/L (3.5-5.1)
--- NOTE | 2020-06-01 02:25 | NUR ---
THIS NURSE, ACTING IN HIS CHARGE NURSE DUTIES, HAD A CONVERSATION WITH PATIENT IN REGARD TO HIS INTERACTIONS WITH PRIMARY RN. PATIENT STATES THAT HE "IS FULLY CAPABLE OF TAKING CARE OF MYSELF" AND "WILL GET UP WHEN I PLEASE". THIS NURSE AGREES WITH PRIMARY RN THAT PATIENT IS A HIGH FALL RISK AND SHOULD BE ASSISTED WHEN AMBULATING.
--- NOTE | 2020-06-01 03:53 | NUR ---
ASSUMED CARE OF PATIENT FROM ER. PATIENT UNCOOPERATIVE, CONFUSING WORDS. DEMANDING METOPROLOL AND PAIN MEDS. WHEN THIS RN TRIED TO COMPLETE MED REC, HE BECAME HOSTILE AND ANGRY STATING WE WERE MESSING WITH HIS MEDICATION. I TRIED TO EXPLAIN I WOULD CALL [employer] SYSTEM DISPATCHER BUT HE DID NOT WANT TO LISTEN OR TALK. PATIENTS CALLED THIS RN, MED REC COMPLETED WITH HER. SHE EXPLAINED THAT HE HAS BECOME MORE AND MORE FORGETFUL, ANXIOUS AND WORRIED. PATIENTS CODE GIVEN TO , VISITING HOURS EXPLAINED. PATIENT ALSO REFUSES BED ALARM. SEED SALES MANAGER TO SPEAK WITH PATIENT.
[2020-06-01 05:00] VITALS: BP 158/81
--- NOTE | 2020-06-01 07:03 | EKG ---
[address] [place] [address] ELECTROCARDIOGRAM REPORT Name: EFFIE SILVESTRE Room #: 216-P ADM IN M.R.#: [id number] Admission: 05/31/20 Attend Phys: Shefali Valdes MD Discharge: Date of : 47 Report #: [id number] [facility] ED Test Date: 2020-05-31 Test Time: 16:16:29 Pat Name: EFFIE SILVESTRE Department: Room: 216 Gender: M Statement Request Clerk: MEGHAN : 1945 Requested By: Carlos Downing Order Number: [id number] MD: Sam Alfredo Measurements Intervals [place] Rate: 71 P: 16 NV: 124 QRS: 20 QRSD: 105 T: 4 QT: 386 QTc: 420 Interpretive Statements Sinus rhythm Abnormal R-wave progression, late transition Compared to ECG 07/15/2017 18:15:50 ST (T wave) deviation no longer present T-wave abnormality no longer present Possible ischemia no longer present Electronically Signed On 06-01-2020 7:02:48 CDT by Sam Alfredo [email or web address] <ELECTRONICALLY SIGNED> By: Sam Alfredo MD, [facility] 06/01/20 0702 1616 1616 Sam Alfredo MD, [facility] /EPI
[2020-06-01 08:00] VITALS: BP 175/91
--- NOTE | 2020-06-01 09:28 | 2DMMODE ---
[facility] [place] [address] 2 D/M-MODE ECHOCARDIOGRAM Name: EFFIE SILVESTRE RAY Room #: 216-P ADM IN M.R.#: [id number] Admission: 05/31/20 Attend Phys: Shefali Valdes MD Discharge: Date of : 47 Report #: [id number] THIS REPORT FOR: cc: Gustavo Pemberton MD, Michael D. MD Lundgren, Craig H. MD [facility] ~ APPROVED REPORT Study performed: 06/01/2020 08:52:12 EXAM: Comprehensive 2D, Doppler, and color-flow Echocardiogram Patient Location: Bedside Room #: 216 Status: routine BSA: 2.28 HR: 83 bpm BP: 175/91 mmHg Rhythm: NSR Other Information Study Quality: Adequate Technically limited study due to COPD and morbid obesity. Indications PHTN, SOB, edema, CHF. Hx: COPD, HTN. 2D Dimensions RVDd: 36.27 mm IVSd: 14.02 (7-11mm) LVOT Diam: 21.53 (18-24mm) LVDd: 49.19 mm PWd: 13.34 (7-11mm) Ascending Ao: 35.43 (22-36mm) LVDs: 33.36 (25-40mm) Aortic Root: 38.25 mm Volumes Left Atrial Volume (Systole) Single Plane 4CH: 44.27 mL Single Plane 2CH: 55.15 mL LA ESV Index: 25.00 mL/m2 Aortic Valve AoV Peak Surya.: 1.43 m/s AO Peak Gr.: 8.20 mmHg LVOT Max P.17 mmHg [facility] [address] [place] [address] 2 D/M-MODE ECHOCARDIOGRAM Name: EFFIE SILVESTRE HAZLETON Room #: 216-P [facility] IN ..#: [id number] Admission: 05/31/20 Attend Phys: Shefali Valdes MD Discharge: Date of : 47 Report #: [id number] LVOT Max V: 1.02 m/s ZORA Vmax: 2.60 cm2 Mitral Valve E/A Ratio: 0.6 MV Decel. Time: 265.26 ms MV E Max Surya.: 0.60 m/s MV A Surya.: 1.00 m/s MV PHT: 76.93 ms IVRT: 96.89 ms Pulmonary Valve PV Peak Surya.: 1.13 m/s PV Peak Gr.: 5.13 mmHg Pulmonary Vein P Vein S: 0.85 m/s P Vein D: 0.38 m/s P Vein S/D Ratio: 2.24 Tricuspid Valve TR Peak Surya.: 3.00 m/s RAP Estimate: 5.00 mmHg TR Peak Gr.: 36.04 mmHg PA Pressure: 41.00 mmHg Left Ventricle The left ventricle is normal size. There is normal LV segmental wall motion. Mild concentric left ventricular hypertrophy. Left ventricular systolic function is normal. LVEF is 60%. Mild diastolic dysfunction Right Ventricle The right ventricle is normal size. The right ventricular systolic function is normal. Atria The left atrium size is normal. The right atrium size is normal. Aortic Valve The aortic valve is normal in structure. No aortic regurgitation is present. There is no aortic valvular stenosis. Mitral Valve The mitral valve is normal in structure. There is no mitral valve regurgitation noted. No evidence of mitral valve stenosis. [facility] [place] [address] 2 D/M-MODE ECHOCARDIOGRAM Name: NIRMALAEFFIE HAZLETON Room #: 216-P [facility] IN M.R.#: [id number] Admission: 05/31/20 Attend Phys: Shefali Valdes MD Discharge: Date of : 49 Report #: [id number] Tricuspid Valve The tricuspid valve is normal in structure. Trace tricuspid regurgitation. Estimated PAP is 45mmHg. Pulmonic Valve Pulmonic valve is not well visualized. Great Vessels Aortic root is borderline dilated. The ascending aorta is normal in size. IVC is normal in size and collapses >50% with inspiration. Pericardium There is no pericardial effusion. <Conclusion> Left ventricular systolic function is normal. There is normal LV segmental wall motion. LVEF is 60%. Mild diastolic dysfunction The aortic valve is normal in structure. No aortic regurgitation or stenosis The mitral valve is normal in structure. No mitral valve regurgitation. Trace tricuspid regurgitation. Estimated pulmonary artery pressure of 45mmHg. There is no pericardial effusion. <ELECTRONICALLY SIGNED> By: Salvador Garcia MD, [facility] 06/01/20927 7 7 Salvador Garcia MD, FAC /INF
[2020-06-01 11:30] VITALS: BP 103/48
--- NOTE | 2020-06-01 15:31 | NUR ---
DR INFANTE PAGED X2 D/T PT CONCERNED ABOUT BLOOD PRESSURE GETTING TO LOW, BP 103/68 AT THIS TIME, PT IS ASYMPTOMATIC. PT HAS BEEN ANXIOUS SINCE ADMITTED INTO THE HOSPITAL. PT STATES THAT THE DR IS GIVING HIM TO MANY BLOOD PRESSURE MEDICATIONS. THIS NURSE EDUCATED PT THAT SINCE HE IS ALSO ON A DIURETIC, LASIX THAT THIS CAN LOWER BP ALSO WHICH CAN BE WHY IT IS LOW. PT SABLE AT THIS TIME, CALL LIGHT IN REACH. NO OTHER CONCERNS AT THIS TIME
[2020-06-01 16:15] VITALS: BP 146/66
--- NOTE | 2020-06-01 16:30 | NUR ---
ASSESSMENT: CM REVIEWED CHART AND SPOKE WITH PATIENT AND HIS . PT WAS ADMITTED DUE TO [facility]. PT LIVES IN A HOUSE WITH HIS . PT HAS ONE STEP TO ENTER AND ABOUT 6 STEPS WITH HANDRAILS TO THE MAIN LEVEL AND 6 TO THE BOTTOM. PT HAS A CANE AND WALKER AT HOME BUT REPORTS HE DOES NOT USE THEM. PT HAS BEEN TO [facility] IN THE PAST BUT HAS NOT HAD HH THEY STATE. PT IS HOPING HE WILL HAVE NO NEEDS AT DISCHARGE. PT IS CONTINUING TO DIURESIS TODAY. CM WILL CONTIUE TO FOLLOW TO ASSIST NEEDED.
--- NOTE | 2020-06-01 18:39 | NUR ---
PT RESTING IN BED TALKING TO AT THIS TIME, PT IS MORE CALM REGARDING BLOOD PRESSURE LAST PRESSURE 152/68 PER PTS BEDSIDE BP MONITOR. PT HAS NO OTHER CONCERNS AT THIS TIME BUT WANTS TO TALK TO DR ABOUT CELEBREX OVER HYDRO. PT FEELS THE HYDRO IS NOT WORKING FOR HIM ANYMORE AND THAT THE PAIN IS MORE ARTHRITIC. CALL LIGHT IN REACH.
[2020-06-01 19:25] VITALS: BP 136/67
--- NOTE | 2020-06-02 04:08 | NUR ---
ASSESSMENTS CHARTED, MEDS CHARTED GIVEN. PATIENT REFUSING ANY ASSISTANCE WITH MOVING, REFUSED BED ALARM. ANXIOUS ABOUT LOW BLOOD PRESSURE, TAKES HIS BLOOD PRESSURE AND OXYGEN LEVELS VERY FREQUENTLY. ON 4 LITERS NC. 2 LITERS BASELINE. DESATS WITH EXERCISE. ON LASIX THERAPY. WANTS TO TALK TO DOCTOR ABOUT CELEBREX VS HYDROCODONE.
[2020-06-02 04:33] VITALS: BP 149/80
[2020-06-02 08:00] VITALS: BP 136/79
--- NOTE | 2020-06-02 11:12 | EKG ---
[place] [address] [facility] [place] [address] ELECTROCARDIOGRAM REPORT Name: EFFIE SILVESTRE Room #: 216-P ADM IN M.R.#: [id number] Admission: 05/31/20 Attend Phys: Shefali Valdes MD Discharge: Date of : 49 Report #: [id number] [facility] Test Date: 2020-06-02 Test Time: 10:57:05 Pat Name: EFFIE SILVESTRE Department: Room: 216 P Gender: M Business Continuity Consultant: FSCHWALBE : 1945 Requested By: Salvador Garcia Order Number: [id number] MD: Sam Alfredo Measurements Intervals [place] Rate: 100 P: MN: QRS: -1 QRSD: 102 T: -23 QT: 364 QTc: 470 Interpretive Statements Atrial fibrillation Abnormal R-wave progression, late transition Nonspecific T abnormalities, inferior leads Baseline wander in lead(s) V5,V6 Compared to ECG 05/31/2020 16:16:29 T-wave abnormality now present Sinus rhythm no longer present Electronically Signed On 06-02-2020 11:12:08 CDT by Sam Alfredo [email or web address] <ELECTRONICALLY SIGNED> By: Sam Alfredo MD, FACC 06/02/20 1112 1057 1057 Sam Alfredo MD, [facility] /EPI
[2020-06-02 12:15] VITALS: BP 112/75; BP 112/85
--- NOTE | 2020-06-02 15:39 | NUR ---
ASSESSMENT CHARTED. PT ALERT AND ORIENTED. VERY ANXIOUS. DENIED HAVING PAIN. REPORT SOB WITH ACTIVITY. SCHEDULED RT TREATMENT PROVIDED ORDERED. AFIB ON TELE. CARDIOLOGY AWARE. NO CONCERNS AT THIS TIME.
[2020-06-02 16:10] VITALS: BP 122/57
[2020-06-02 20:45] VITALS: BP 130/65
--- NOTE | 2020-06-03 03:38 | NUR ---
ASSESSMENTS CHARTED, MEDS CHARTED GIVEN PATIENT ANXIOUS AT START OF SHIFT. REQUESTING HE RECEIVE ANXIETY MEDS. SINUS RHYTHM ON TELEMETRY. PATIENT STILL REFUSING PRECAUTIONARY AIDS. PATIENT SLEPT THROUGH MOST OF SHIFT. PLAN OF CARE IS TO HAVE REPEAT EKG IN AM. CONTINUE DIURESING. POSSIBLE DISCHARGE.
[2020-06-03 04:49] VITALS: BP 116/56
--- NOTE | 2020-06-03 07:16 | EKG ---
[address] [place] [address] ELECTROCARDIOGRAM REPORT Name: EFFIE SILVESTRE Room #: 216-P ADM IN M.R.#: [id number] Admission: 05/31/20 Attend Phys: Shefali Valdes MD Discharge: Date of : 49 Report #: [id number] [facility] Test Date: 2020-06-02 Test Time: 19:33:54 Pat Name: EFFIE SILVESTRE Department: Room: 216 P Gender: M Dental Technician Instructor: BEBO : 1945 Requested By: Liang Coley Order Number: [id number] : Sam Alfredo Measurements Intervals [place] Rate: 79 P: 19 UT: 130 QRS: 24 QRSD: 96 T: -16 QT: 382 QTc: 438 Interpretive Statements Sinus rhythm Abnormal R-wave progression, late transition Nonspecific T abnormalities, inferior leads Compared to ECG 06/02/2020 10:57:05 Atrial fibrillation no longer present T-wave abnormality still present Electronically Signed On 06-03-2020 7:16:10 CDT by Sam Alfredo [email or web address] <ELECTRONICALLY SIGNED> By: Sam Alfredo MD, FAC 06/03/20 0716 32 32 Sam Alfredo MD, [facility] /EPI
--- NOTE | 2020-06-03 07:16 | EKG ---
[place] [address] [facility] [place] [address] ELECTROCARDIOGRAM REPORT Name: EFFIE SILVESTRE Room #: 216-P ADM IN M.R.#: [id number] Admission: 05/31/20 Attend Phys: Shefali Valdes MD Discharge: Date of : 49 Report #: [id number] [facility] Test Date: 2020-06-03 Test Time: 07:12:21 Pat Name: EFFIE SILVESTRE Department: Room: 216 P Gender: M Kitchen Assistant: EMERALD : 1945 Requested By: Salvador Garcia Order Number: [id number] MD: Sam Alfredo Measurements Intervals [place] Rate: 67 P: 48 VT: 138 QRS: 27 QRSD: 110 T: 0 QT: 424 QTc: 448 Interpretive Statements Sinus rhythm Abnormal R-wave progression, late transition Borderline T abnormalities, anterior leads Compared to ECG 06/02/2020 19:33:54 No significant changes Electronically Signed On 06-03-2020 7:16:37 CDT by Sam Alfredo [email or web address] <ELECTRONICALLY SIGNED> By: Sam Alfredo MD, [facility] 06/03/20715 1 1 Sam Alfredo MD, [facility] /EPI
[2020-06-03 07:55] VITALS: BP 147/79
[2020-06-03 12:20] VITALS: BP 156/86
[2020-06-03 16:30] VITALS: BP 125/59
--- NOTE | 2020-06-03 17:05 | NUR ---
patient progressing towards dismissal goals. adequate appetite. at bedside during visiting hours. continues on 4lnc. plan for discharge home tomorrow.
[2020-06-03 20:22] VITALS: BP 125/53
--- NOTE | 2020-06-04 04:25 | NUR ---
Assumed pt care at 1900. Pt is alert and oriented, but with forgetfulness. Pt is stable. Pt is sitting, at the bedside. Fall precaution in place. Assessment completed and documented. Scheduled meds administered to pt. Tolerated PO intake. No acute events overnight. Continue to monitor. No further needs at this time.
[2020-06-04 08:15] VITALS: BP 107/70
[2020-06-04 12:15] VITALS: BP 116/61
[2020-06-04] MEDS ORDERED: LOPRESSOR50 PO (13:05)
[2020-06-04] MEDS ORDERED: PRIMIDONE50 MG PO (13:06)
[2020-06-04] MEDS ORDERED: DICLOFENAC SOD50 MG PO (13:06)
[2020-06-04] MEDS ORDERED: DEMADEX20 MG PO (13:07)
[2020-06-04] MEDS ORDERED: MIRALAX17 GM PO (13:07)
[2020-06-04] MEDS ORDERED: EFFEXOR XR37.5 MG PO (13:08)
[2020-06-04] MEDS ORDERED: PEPCID20 MG PO (13:08)
[2020-06-04] MEDS ORDERED: IPRAT-ALBUT 0.5-3 ML INH (13:10)
[2020-06-04] MEDS ORDERED: ELIQUIS5 MG PO (13:10)
[2020-06-04 13:50] VITALS: BP 116/61
--- NOTE | 2020-06-04 15:58 | NUR ---
ASSESSMENT CHARTED. PT ALERT AND ORIENTED WITH FORGETFULNESS. DENIED HAVING PAIN. REPORT SOB WITH ACTIVITY. DR. CASTILLO CONSULTED. PT AND OT ORDERED. PROGRESSING WELL TOWARDS DISCHARGE GOAL.
[2020-06-04 16:15] VITALS: BP 140/58
[2020-06-04 20:15] VITALS: BP 140/67
[2020-06-05 04:45] VITALS: BP 147/77
[2020-06-05 08:20] VITALS: BP 144/76
--- NOTE | 2020-06-05 11:29 | EKG ---
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 : 1945 Requested By: Kirsten Wu Order Number: [id number] MD: Sam Alfredo Measurements Intervals [place] Rate: 73 P: 35 HI: 133 QRS: -7 QRSD: 94 T: -15 QT: 383 QTc: 422 Interpretive Statements Sinus rhythm Abnormal R-wave progression, late transition Borderline T abnormalities, inferior leads Compared to ECG 06/03/2020 07:12:21 No significant changes Electronically Signed On 06-05-2020 11:28:47 CDT by Sam Alfredo [email or web address] <ELECTRONICALLY SIGNED> By: Sam Alfredo MD, [facility] 06/05/20 1128 1344 1344 Sam Alfredo MD, FAC /EPI
[2020-06-05 12:10] VITALS: BP 116/67
[2020-06-05 12:22] LABS: HEMATOCRIT 37.3 % (42.0-52.0); HEMOGLOBIN 12.5 gm/dL (14.0-18.0); MCH 32.8 pg (26.0-34.0); MCHC 33.5 g/dL (28.0-37.0); MCV 97.9 fL (80.0-100.0); RBC 3.81 mil/uL (4.50-6.00); RDW 15.4 % (10.5-14.5); WBC 6.5 thou/uL (4.0-11.0)
[2020-06-05 12:27] LABS: CALCIUM 8.9 mg/dL (8.5-10.1); CREATININE 1.4 mg/dL (0.7-1.3); POTASSIUM 5.5 mmol/L (3.5-5.1)
[2020-06-05 16:30] VITALS: BP 145/72
--- NOTE | 2020-06-05 16:37 | NUR ---
PT VERY GAMBELL. ALERT AND ORIENTED. VSS. PRN PAIN MED GIVEN WITH PARTIAL RELIEF. REPORT PAIN IN THE LOWER EXTREMITY WITH MOVEMENT. UP IN THE CHAIR X1. SOB NOTED WITH ACTIVITY. NO CONCERNS AT THIS TIME.
[2020-06-05 19:40] VITALS: BP 138/70
--- NOTE | 2020-06-06 04:04 | NUR ---
A/O X 4.UP WITH ASSIST WITH THE WALKER TO THE BATHROOM.TOOK HALF OF THE XANAX TONIGHT.SOB WITH EXERTION.SLEPT.MONITOR SHOWS SR.POC CONTINUED.
[2020-06-06 04:25] VITALS: BP 154/77
[2020-06-06 08:00] VITALS: BP 126/86
[2020-06-06 12:10] VITALS: BP 139/79
--- NOTE | 2020-06-06 13:11 | NUR ---
PT DISCHARGING TODAY TO HOME WITH HH FAXED REFERRAL TO [facility] HH SPOKE WITH JANNETTE IN INTAKE THEY RECEIVED REFERRAL WITH DC ORDERS/SUMMARY AND CAN ACCEPT THEY WILL COORDINATE VISITS WITH PT.
--- NOTE | 2020-06-06 13:34 | NUR ---
FAXED REFERRAL TO [facility] PATIENT DME FOR A NEBULIZER PT ON SERVICE WITH THEM FOR HOME O2 ALREADY SPOKE WITH NAOMI IN INTAKE THEY RECEIVED REFERRAL AND WILL DELIVER TO PT'S HOME ONCE DISCHARGED PT TO CALL WHEN ARRIVES AT HOME.
[2020-06-06 13:48] VITALS: BP 116/61
--- NOTE | 2020-06-06 15:08 | NUR ---
Nutrition: Diet education previously completed on 06/01 however with additional questions. RD met with and reviewed heart healthy diet, answered questions. New hyperkalemia-5.5, all other values have been normal. KCl D/C'ed. Reviewed high K+ foods to limit at this time. Plan to D/C today
[2020-06-06 15:48] VITALS: BP 116/61
--- NOTE | 2020-06-06 17:15 | NUR ---
ASSESSMENT CHARTED. PT ALERT AND ORIENTED. VSS. SOB NOTED WITH ACTIVITY. ORDERS GIVEN TO DISCHARGE PT TO HOME WITH HH. DISCHARGE INSTRUCTIONS GIVEN TO PT AND THE . PT VERBERLISED UNDERSTANDING.
--- NOTE | 2020-06-07 08:01 | NUR ---
Note Given: Y Facility List Provided:Y Facility Mery: None chosen at this time Rody Andrews NP discusse BPCI with this pt 06/06/20
== END 2020-06-06 17:55 | disposition home health service (06) | DRG 291 ==
LOC: ER 16:09 → EROBS 20:29 → 2N 20:29
PROVIDERS: Internal Medicine Pulmonary Disease; Nurse Practitioner; Nurse Practitioner Family; ADMIT Internal Medicine; ATTEND Internal Medicine
DX: I11.0 Hypertensive heart disease with heart failure (principal); J96.21 Acute and chronic respiratory failure with hypoxia; D68.59 Other primary thrombophilia; Z68.41 Body mass index [BMI] 40.0-44.9, adult; J43.9 Emphysema, unspecified; I50.33 Acute on chronic diastolic (congestive) heart failure; F41.9 Anxiety disorder, unspecified; E78.5 Hyperlipidemia, unspecified; I25.10 Atherosclerotic heart disease of native coronary artery without angina pectoris; I16.0 Hypertensive urgency; F32.9 Major depressive disorder, single episode, unspecified; G31.84 Mild cognitive impairment of uncertain or unknown etiology; G25.81 Restless legs syndrome; I48.0 Paroxysmal atrial fibrillation; E66.01 Morbid (severe) obesity due to excess calories; R21 Rash and other nonspecific skin eruption; I27.20 Pulmonary hypertension, unspecified; E87.5 Hyperkalemia; Z87.442 Personal history of urinary calculi; Z79.82 Long term (current) use of aspirin; Z79.899 Other long term (current) drug therapy; Z88.7 Allergy status to serum and vaccine; Z87.891 Personal history of nicotine dependence; Z91.14 Patient's other noncompliance with medication regimen
CPT/HCPCS: 10081

== ENCOUNTER → 2020-06-24 | Outpatient (CLI) | payer OTHER, BC ==
[~2020-06-24] MED LIST changes: +CELEXA 20 MG TA20 MG PO; +CLONAZEPAM 0.50.5 M1 PO; +DICLOFENAC SOD50 MG PO; +EFFEXOR XR37.5 MG PO; +ELIQUIS5 MG PO; +IPRAT-ALBUT 0.5-3 ML INH; +IRON325 M1 PO; +MIRALAX17 GM PO; +PEPCID20 MG PO; +PRIMIDONE50 MG PO; +VENTOLIN HFA 1818 GM INH
== END ==
LOC: SJCVC 14:06
PROVIDERS: ATTEND Internal Medicine
DX: I50.32 Chronic diastolic (congestive) heart failure (principal); R93.1 Abnormal findings on diagnostic imaging of heart and coronary circulation; J96.11 Chronic respiratory failure with hypoxia; J96.12 Chronic respiratory failure with hypercapnia; I10 Essential (primary) hypertension; I48.0 Paroxysmal atrial fibrillation; E78.5 Hyperlipidemia, unspecified; J43.1 Panlobular emphysema; I65.23 Occlusion and stenosis of bilateral carotid arteries; I25.10 Atherosclerotic heart disease of native coronary artery without angina pectoris; F32.9 Major depressive disorder, single episode, unspecified; E66.9 Obesity, unspecified; Z87.891 Personal history of nicotine dependence; Z79.82 Long term (current) use of aspirin; Z79.891 Long term (current) use of opiate analgesic; Z88.1 Allergy status to other antibiotic agents; Z88.8 Allergy status to other drugs, medicaments and biological substances

== ENCOUNTER → 2020-08-18 | Outpatient (CLI) | payer OTHER, BC | LOC: SJCVC 08:08 | PROVIDERS: ATTEND Internal Medicine | DX: E55.9 Vitamin D deficiency, unspecified (principal); I11.0 Hypertensive heart disease with heart failure; I50.812 Chronic right heart failure; I25.10 Atherosclerotic heart disease of native coronary artery without angina pectoris; J43.9 Emphysema, unspecified; E78.5 Hyperlipidemia, unspecified; Z68.38 Body mass index [BMI] 38.0-38.9, adult; Z79.82 Long term (current) use of aspirin; Z79.899 Other long term (current) drug therapy ==

== ENCOUNTER → 2020-10-07 | Outpatient (CLI) | payer OTHER, BC | LOC: SJCVC 10:06 | PROVIDERS: ATTEND Internal Medicine | DX: I11.0 Hypertensive heart disease with heart failure (principal); I50.32 Chronic diastolic (congestive) heart failure; R93.1 Abnormal findings on diagnostic imaging of heart and coronary circulation; J96.11 Chronic respiratory failure with hypoxia; J96.12 Chronic respiratory failure with hypercapnia; I48.0 Paroxysmal atrial fibrillation; I25.10 Atherosclerotic heart disease of native coronary artery without angina pectoris; E78.5 Hyperlipidemia, unspecified; J43.1 Panlobular emphysema; E66.9 Obesity, unspecified; Z88.8 Allergy status to other drugs, medicaments and biological substances; Z79.82 Long term (current) use of aspirin; Z79.899 Other long term (current) drug therapy; Z87.891 Personal history of nicotine dependence; Z82.49 Family history of ischemic heart disease and other diseases of the circulatory system ==

== ENCOUNTER → 2021-04-21 | Outpatient (CLI) | payer OTHER, BC | LOC: SJCVC 13:45 | PROVIDERS: ATTEND Internal Medicine | DX: R94.31 Abnormal electrocardiogram [ECG] [EKG] (principal); I45.9 Conduction disorder, unspecified; I11.0 Hypertensive heart disease with heart failure; I50.32 Chronic diastolic (congestive) heart failure; R93.1 Abnormal findings on diagnostic imaging of heart and coronary circulation; J96.11 Chronic respiratory failure with hypoxia; J96.12 Chronic respiratory failure with hypercapnia; I48.0 Paroxysmal atrial fibrillation; I10 Essential (primary) hypertension; J43.1 Panlobular emphysema; I25.10 Atherosclerotic heart disease of native coronary artery without angina pectoris; F32.9 Major depressive disorder, single episode, unspecified; E66.9 Obesity, unspecified; E78.5 Hyperlipidemia, unspecified; Z87.891 Personal history of nicotine dependence; Z79.82 Long term (current) use of aspirin; Z79.899 Other long term (current) drug therapy; Z88.8 Allergy status to other drugs, medicaments and biological substances; Z82.49 Family history of ischemic heart disease and other diseases of the circulatory system ==